=== PATIENT | male | born 1970 | race Two or more races ===

== ENCOUNTER → 2025-01-17 | Outpatient (CLI) | payer BC, SELFPAY ==
[2025-01-17 08:32] LABS: Glucose Estimated Average 292 mg/dL (80-131); Hemoglobin A1C 11.8 % Hgb (4.8-6.0)
[2025-01-17 08:35] LABS: Basophils # (Auto) 0.1 Thou/mm3 (0.0-0.2); Basophils % (Auto) 2 % (0-2.5); Eosinophils # (Auto) 0.1 Thou/mm3 (0.0-0.5); Eosinophils % (Auto) 2 % (0-10); Hematocrit 44.1 % (41.0-53.0); Hemoglobin 15.5 g/dL (13.5-16.0); Immature Granulocytes % (Auto) 1 % (0-0); Immature Granulocytes Auto 0.02 Thou/mm3 (0.00-0.00); Lymphocytes # (Auto) 1.3 Thou/mm3 (1.0-4.8); Lymphocytes % (Auto) 35 % (10-50); Mean Corpuscular HGB Conc 35.1 g/dl (31.0-37.0); Mean Corpuscular Hemoglobin 30.1 pg (25.0-35.0); Mean Corpuscular Volume 86 fL (80-100); Monocytes # (Auto) 0.3 Thou/mm3 (0.0-0.8); Monocytes % (Auto) 7 % (0-12); Neutrophils % (Auto) 54 % (37-80); Nucleated Red Blood Cell % 0 /100 WBC (0); Platelet Count 195 Thou/mm3 (140-440); RDW Standard Deviation 39.3 fL (35.1-43.9); Red Blood Count 5.15 Miln/mm3 (4.50-5.90); White Blood Count 3.8 Thou/mm3 (3.8-10.6)
[2025-01-17 08:57] LABS: Alanine Aminotransferase 38 U/L (10-49); Albumin, Serum 4.7 gm/dL (3.5-5.0); Albumin/Globulin Ratio 2.4 (1.2-2.2); Anion Gap 8 (7-16); Aspartate Amino Transferase 31 U/L (0-34); BUN/Creatinine Ratio 16 Ratio (12-20); Bilirubin,Total 1.5 mg/dL (0.3-1.2); Blood Urea Nitrogen 14 mg/dL (9-23); Calcium 9.8 mg/dL (8.3-10.6); Calcium (Corrected) 9.8 mg/dL (8.5-10.1); Carbon Dioxide 29.4 mMol/L (20.0-31.0); Cardiac Risk Estimate 5.7 RATIO (4.0-6.7); Chloride 101 mMol/L (98-107); Cholesterol 221 mg/dL (132-200); Creatinine (Component) 0.9 mg/dL (0.6-1.3); Glucose 271 mg/dL (74-106); HDL Cholesterol 39 mg/dL (40-60); LDL Cholesterol,Calculated 130 mg/dL (0-130); Osmolality,Calculated 286 (275-295); Sodium 138 mMol/L (136-145); Total Protein 6.7 gm/dL (5.7-8.2); Triglycerides 261 mg/dL (30-150); eGFR > 60 See Note
[2025-01-17 09:05] LABS: Collection Type, Urine Clean Catch; Squamous Epithelial Cell,Urine 0 /hpf (0-5)
[2025-01-17 09:16] LABS: Alkaline Phosphatase 120 U/L (46-116)
[2025-01-17 09:59] LABS: Bilirubin,Urine Negative (Negative); Blood,Urine Negative (Negative); Clarity,Urine Clear (Clear/Hazy); Color,Urine Yellow (Lt Yel-Yel); Culture Indicated,Urine Not Indicated; Glucose, Urine 4+ (Negative); Ketones,Urine Negative (Negative); Leukocyte Esterase,Urine Negative (Negative); Nitrite,Urine Negative (Negative); Protein,Urine Trace (Neg - Trace); RBC,Urine 2 /hpf (0-3); Specific Gravity,Urine 1.041 (1.001-1.035); Urobilinogen,Urine Negative mg/dL (0.0-1.0); WBC,Urine 1 /hpf (0-5)
[2025-01-17 10:03] LABS: Sperm,Urine Present
[2025-01-20 07:06] LABS: PSA, Free 0.24 ng/mL; PSA, Total 1.4 ng/mL (< OR = 4.0)
== END | disposition home or self-care (01) ==
PROVIDERS: PCP Family Medicine; Referring Provider Student in an Organized Health Care Education/Training Program; Visit Provider Student in an Organized Health Care Education/Training Program
DX: R35.1 Nocturia (principal); I10 Essential (primary) hypertension; E78.5 Hyperlipidemia, unspecified; E11.65 Type 2 diabetes mellitus with hyperglycemia
CPT/HCPCS: 36415; 80053; 80061; 81001; 83036; 84153; 84154; 85025